=== PATIENT | male | born 1975 | race Caucasian/White ===

== ENCOUNTER 2023-11-01 09:35 | Day surgery (SDC) | payer OTHER, SELFPAY ==
--- NOTE | 2023-10-30 08:58 | SUR.PREOP ---
Patient called regarding upcoming procedure. Reviewed preop instructions, appointment times, and procedure prep.
[2023-11-01] VITALS (7 sets, daily range): BP systolic 94–112; BP diastolic 51–64; PULSE 48–85; RESP 16–26; TEMP 36.6; O2SAT 97–99; BMI 19.3
[2023-11-01] MEDS: LACTATED RINGERS 1,000 ML 150 ML IV CONT (10:08)
--- NOTE | 2023-11-01 10:35 | WPDANESEPPF ---
Anes - Initial Pre Proc Eval Procedure: Operation Date: 11/01/23 11:00 Proposed Procedures p Screening Colonoscopy - Kei Sanchez MD Date/Time: 11/01/23 10:35 Surgeon: Kei Sanchez MD Pre Op Diagnosis: neoplasm screening Patient Data Age: 48 Gender: M Height: 1.78 m Weight: 61.3 kg Last Vital Signs Temp 97.8 F 11/01/23 09:48 Pulse 85 11/01/23 09:48 Resp 16 11/01/23 09:48 BP 112/64 11/01/23 09:48 Pulse Ox 99 11/01/23 09:48 O2 Del Method Room Air 11/01/23 09:48 Allergies Allergy/AdvReac Type Severity Reaction Status Date / Time Tropicamide Allergy Severe Other Uncoded 11/01/23 09:57 Home Medications Medication Instructions Recorded Confirmed Type diroximel fumarate 231 mg 231 mg PO BID 08/27/23 11/01/23 History capsule,delayed release (Vumerity) Patient hx anesthesia problems: none Family hx anesthesia problems: none Results Review: All pre-operative results and documents have been reviewed as part of the pre-operative evaluation. [facility] Past Medical History Medical History Celiac disease Multiple sclerosis Surgical History Surgical History H/O inguinal hernia repair Family History Family History Mother Family history of lupus erythematosus Celiac disease Sjogren's disease Social History Social History (Updated 08/27/23 @ 13:13 by Josette Vogel CMA) Smoking packs per day: 1 Smoking cigarettes per day: 20.0 Years smoked: 16 Smoking pack-years: 16.00 Smoking status: Former smoker Tobacco type: cigarettes Second hand tobacco smoke exposure: No Smoking end date: 08/19/02 Alcohol intake: current Drinks per week: 3 Alcohol use details: occasional Substance use: current Substance use type: marijuana Other substance usage details: to help with symptoms of MS Do You Feel Safe in your Home?: Yes Lack of Transportation: No Lack of Food: Never True Current Housing: I Have Housing Concerned About Future Housing: No Difficulty Paying Gas/Electric Bills: No Difficulty Paying for Meds: Decline to Answer Currently Unemployed: No Education: Bachelor's Degree Difficulty w/ Childcare or Family Care: No Living arrangements: with family Occupation/Education: occupation Gender identity (if verbalized by the patient): Male Spiritual care concerns: No Agree to blood products: Yes Anes - Eval Final PreProcedure Day of Procedure 11/01/23 10:35 Patient weight: normal Heart: regular rate and rhythm Lungs: clear to auscultation Airway: Mallampati scale class II Neurological: alert and oriented Last oral intake: >/= 8 hours ASA classification: II Emergent: no Anesthetic plan: proceed Anesthesia type and monitoring: general GIVS and standard monitoring Results Review: All pre-operative results and documents have been reviewed as part of the pre-operative evaluation. Informed Consent: The patient's anesthetic plan and its attendant risks and benefits were discussed with the patient/family/POA. Questions were solicited and answers provided to the satisfaction of the patient/family/POA.
--- NOTE | 2023-11-01 11:07 | PM.HPGS ---
History of Present Illness History of Present Illness Consent: Risks, benefits, and alternatives have been discussed and questions answered. Patient agrees to proceed with procedure. Chief complaint: neoplasm screening Narrative: Kishan Negrete is a 48 year old male here for first screening colonoscopy Review of Systems Review of Systems: All systems reviewed & are unremarkable except as noted in HPI and below PMFSH Past Medical History Medical History Celiac disease Multiple sclerosis Surgical History Surgical History H/O inguinal hernia repair Family History Family History Mother Family history of lupus erythematosus Celiac disease Sjogren's disease Social History Social History (Updated 08/27/23 @ 13:13 by Josette Vogel [facility]) Smoking packs per day: 1 Smoking cigarettes per day: 20.0 Years smoked: 16 Smoking pack-years: 16.00 Smoking status: Former smoker Tobacco type: cigarettes Second hand tobacco smoke exposure: No Smoking end date: 08/19/02 Alcohol intake: current Drinks per week: 3 Alcohol use details: occasional Substance use: current Substance use type: marijuana Other substance usage details: to help with symptoms of MS Do You Feel Safe in your Home?: Yes Lack of Transportation: No Lack of Food: Never True Current Housing: I Have Housing Concerned About Future Housing: No Difficulty Paying Gas/Electric Bills: No Difficulty Paying for Meds: Decline to Answer Currently Unemployed: No Education: Bachelor's Degree Difficulty w/ Childcare or Family Care: No Living arrangements: with family Occupation/Education: occupation Gender identity (if verbalized by the patient): Male Spiritual care concerns: No Agree to blood products: Yes Meds Home Medications and Allergies Home Medications Medication Instructions Recorded Confirmed Type diroximel fumarate 231 mg 231 mg PO BID 08/27/23 11/01/23 History capsule,delayed release (Vumerity) Allergies Allergy/AdvReac Type Severity Reaction Status Date / Time Tropicamide Allergy Severe Other Uncoded 11/01/23 09:57 Vital Signs Vital Signs - 24 hr 11/01/23 09:48 Temperature 97.8 F Pulse Rate 85 Respiratory Rate 16 Blood Pressure 112/64 Pulse Oximetry 99 Oxygen Delivery Room Air Exam Const: General: comfortable and no acute distress HENMT: Face/Nose/Sinus: Normal nares present Eyes: General: appearance normal, both eyes and all related structures Neck: Neck: no JVD Resp: Auscultation: clear to auscultation bilaterally Cardio: Rate: regular rate Rhythm: regular rhythm GI: Inspection: non-distended GI Palp: Yes Soft to palpation Skin: General skin exam: normal color Neuro: General: gait normal Speech: normal speech Extrem: General: normal to inspection Psych: Mental Status: mental status grossly normal Assessment and Plan Assessment and plan (1) Screening for colon cancer: Code(s): Z12.11 - Encounter for screening for malignant neoplasm of colon Status: Acute Assessment and Plan: colonoscopy
== END 2023-11-01 12:41 | disposition home or self-care (01) ==
PROVIDERS: PCP Clinical Nurse Specialist; Visit Provider Internal Medicine Gastroenterology
PROC: 0DJD8ZZ Inspection of Lower Intestinal Tract, Via Natural or Artificial Opening Endoscopic (ICD-10-PCS; CPT 45378; principal; 2023-11-01 11:00)
DX: Z12.11 Encounter for screening for malignant neoplasm of colon (principal); G35 Multiple sclerosis; K90.0 Celiac disease; Z87.891 Personal history of nicotine dependence; F12.90 Cannabis use, unspecified, uncomplicated
CPT/HCPCS: 45378; J2704; J7120

== ENCOUNTER 2025-05-03 18:47 | Emergency (ER) | payer OTHER, SELFPAY ==
[2025-05-03 18:54] VITALS: BP 130/66; PULSE 76; RESP 16; TEMP 37.1; O2SAT 98
--- NOTE | 2025-05-03 19:12 | ED_ITS ---
HPI - Skin/Abscess/Foreign Bdy General Chief complaint: Skin/Abscess/Foreign Body Stated complaint: possible shingles Time Seen by Provider: 05/03/25 19:12 Source: patient Mode of arrival: ambulatory Limitations: no limitations History of Present Illness HPI narrative: 49-year-old male with hx MS presented for complaint of a painful red rash, onset today. Says it wraps from the ribs to the back. endorses back pain from the left shoulder blade and across mid back for 4 days. Endorses 'nerves are burning.' Taking motrin. Denies n/v/d/f/c. Related Data Allergies Allergy/AdvReac Type Severity Reaction Status Date / Time Tropicamide Allergy Severe Other Uncoded 12/26/23 10:52 Review of Systems Review of Systems: CONSTITUTIONAL: Denies body aches, fever, chills, or sweats. EYES: Denies visual changes, redness, or discharge. ENT: Denies rhinorrhea, congestion CARDIOVASCULAR: Denies chest pain, palpitations, or edema. RESPIRATORY: Denies cough or dyspnea. GASTROINTESTINAL: Denies abdominal pain, nausea, vomiting, or diarrhea. SKIN: reports painful rash NEUROLOGIC: Denies headache, numbness, tingling, or weakness. [facility] Past Medical History Medical History Celiac disease Multiple sclerosis Surgical History Surgical History H/O inguinal hernia repair Family History Family History Mother Family history of lupus erythematosus Celiac disease Sjogren's disease Social History Social History Smoking packs per day: 1 Smoking cigarettes per day: 20.0 Years smoked: 15 Smoking pack-years: 15.00 Smoking status: Former smoker Tobacco type: cigarettes Second hand tobacco smoke exposure: No Smoking end date: 08/19/02 Alcohol intake: current Drinks per week: 3 Alcohol use details: occasional Substance use: former Substance use type: marijuana Other substance usage details: to help with symptoms of MS Do You Feel Safe in your Home?: Yes Lack of Transportation: No Lack of Food: Never True Current Housing: I Have Housing Concerned About Future Housing: No Difficulty Paying Gas/Electric Bills: No Difficulty Paying for Meds: Decline to Answer Currently Unemployed: No Education: Bachelor's Degree Difficulty w/ Childcare or Family Care: No Living arrangements: alone Occupation/Education: occupation Gender identity (if verbalized by the patient): Male Spiritual care concerns: No Agree to blood products: Yes Comments At time of signature, I have reviewed and agree with nursing past medical, surgical, social and family history unless otherwise noted. Please see nursing chart for further information. There is no relevant family history pertinent to the presenting complaint Exam Narrative: GENERAL: Well-appearing EYES: conjunctivae clear, and EOMI. ENT: Mucous membranes moist. Oropharynx without edema, erythema or lesions. NECK: Supple. No lymphadenopathy CHEST: Clear to auscultation. HEART: Regular rate and rhythm. SKIN: Warm, dry. Erythematous vesicular rash extending from left lower ribs to left mid back consistent with dermatome, rash is tender with light palpation c/w zoster. No active drainage. NEURO: Alert and oriented x3. Course Course Emergency Course: Patient is aware of diagnosis, understands and agrees to treatment plan. Anticipatory guidance given. Patient agrees to follow-up as directed and is aware of reasons to seek care at the emergency department. Portions of this record may have been created with voice recognition software Level of Care: Express Care Visit Vital Signs Vital signs: Vital Signs Temperature 98.8 F 05/03/25 18:54 Pulse Rate 76 05/03/25 18:54 Respiratory Rate 16 05/03/25 18:54 Blood Pressure 130/66 05/03/25 18:54 Pulse Oximetry 98 05/03/25 18:54 Oxygen Delivery Room Air 05/03/25 18:54 Temperature 98.8 F 05/03/25 18:54 Pulse Rate 76 05/03/25 18:54 Respiratory Rate 16 05/03/25 18:54 Blood Pressure 130/66 05/03/25 18:54 Pulse Oximetry 98 05/03/25 18:54 Oxygen Delivery Room Air 05/03/25 18:54 Reviewed MDM - Skin/Abscess/Foreign Bdy MDM Narrative Medical decision making narrative: Discussed physical exam findings Consistent with zoster, reviewed RX. Advised supportive measures and signs/symptoms to go to the ER. Pt is approp riate for outpt treatment and f/u. Differential Diagnosis Differential diagnosis: Likely abscess of skin or subcutaneous tissue, viral exanthem, dermatophytosis, urticaria, herpes zoster, cellulitis, eczema, insect bites, impetigo and contact dermatitis Discharge Plan Discharge Clinical Impression: Herpes zoster Patient Disposition: Home Condition: Stable Instructions: Shingles (ED) Additional Instructions: Take medication as directed Keep the lesions covered until they are fully crusted over - you are contagious until they are dried Avoid contact with women or people who have not had chickenpox vaccination. Tylenol 1000mg every 8 hours as needed Lidocaine patch as needed (not over the blisters) Follow up with your primary care provider next week. Go to the ER for worsening symptoms or concerns. Patient Language: Albanian Prescriptions: New valacyclovir 1 gram tablet 1,000 mg PO Q8H 7 Days Qty: 21 0RF methylprednisolone [Medrol (Ponce)] 4 mg tablets,dose pack See Rx Instructions .ROUTE .COMPLEX Qty: 21 0RF Rx Instructions: orally per package directions Follow-up/Referrals: Renata,Cheyenne Vargas MD [Primary Care Provider, Family Practice] Stand Alone Forms: Work/School Release IP Time of Disposition: 19:20
--- OUTSIDE RECORDS SUMMARY | 2025-05-03 19:23 | XMS_ITS | Clinical Summary ---
Author Organization [facility] Medical [facility] 2 Address [address] [facility] [place] [address] Care Team Providers Care Promotions Associate Name Role Phone Radha Villela NP Primary Care Provider [phone] Allergies Active Allergy Reactions Criticality Noted Date Comments Tropicamide Nausea & Vomiting Low 04/04/2018 Medications No known medications Active Problems Problem Noted Date Diagnosed Date Cervical spinal stenosis 03/19/2024 Assessment & Plan (03/19/2024 5:35 PM CDT): Moderate to severe cervical stenosis at C5-6 without cord compression, but loss of CSF signal around the cord. Patient wants to defer on neurosurgical follow-up. Risk of serious spinal cord injury if he has an accident discussed. Patient does trail biking. Erectile dysfunction due to diseases classified elsewhere 03/19/2024 Assessment & Plan (03/19/2024 5:37 PM CDT): Option of Cialis and Viagra discussed. Migraine with aura and witho ut status migrainosus, not intractable 09/07/2021 Assessment & Plan (03/19/2024 5:36 PM CDT): Kaliedoscope lights sometimes followed by headache consistent. History of severe migraines in children. Assessment & Plan (03/06/2023 6:48 PM CDT): Kaliedoscope lights sometimes followed by headache consistent. History of severe migraines in children. Assessment & Plan (09/06/2022 5:46 PM MANAGER FINANCIAL SERVICES): Kaliedoscope lights sometimes followed by headache consistent. History of severe migraines in children. Assessment & Plan (03/01/2022 12:28 PM CDT): Kaliedoscope lights sometimes followed by headache consistent. History of severe migraines in children. Assessment & Plan (09/07/2021 8:09 PM MANAGER FINANCIAL SERVICES): Kaliedoscope lights sometimes followed by headache consistent. History of severe migraines in children. Hyperbilirubinemia 05/03/2018 Assessment & Plan (03/19/2024 5:36 PM CDT): 09/19/23 total bilirubin 2.1 Possible Gilbert's syndrome (mother affected) Right upper quadrant ultrasound normal February 2019 Assessment & Plan (03/06/2023 6:48 PM CDT): Possible Gilbert's syndrome (mother affected) Right upper quadrant ultrasound normal February 2019 Assessment & Plan (09/06/2022 5:47 PM MANAGER FINANCIAL SERVICES): Possible Gilbert's syndrome (mother affected) Right upper quadrant ultrasound normal February 2019 Assessment & Plan (03/01/2022 12:29 PM CDT): Possible Gilbert's syndrome (mother affected) Right upper quadrant ultrasound normal February 2019 Assessment & Plan (09/07/2021 8:07 PM MANAGER FINANCIAL SERVICES): Possible Gilbert's syndrome (mother affected) Right upper quadrant ultrasound normal February 2019 Assessment & Plan (03/10/2021 8:09 AM CDT): Possible Gilbert's syndrome (mother affected) Right upper quadrant ultrasound normal February 2019 Assessment & Plan (09/12/2020 5:12 PM MANAGER FINANCIAL SERVICES): Possible Gilbert's syndrome (mother affected) Right upper quadrant ultrasound normal February 2019 Assessment & Plan (03/08/2020 7:34 AM CDT): Possible Gilbert's syndrome (mother affected) Right upper quadrant ultrasound normal February 2019 Assessment & Plan (09/11/2019 9:35 AM MANAGER FINANCIAL SERVICES): Possible Gilbert's syndrome (mother affected) Right upper quadrant ultrasound normal February 2019 Assessment & Plan (03/05/2019 9:28 AM CDT): Possible Gilbert's syndrome (mother affected) Will assess for gallbladder disease Thyroid nodule 05/03/2018 Assessment & Plan (03/01/2022 12:29 PM CDT): Left thyroid nodule 8 mm incidental finding on MRI scan of the cervical spine from February 2019. Addressed with PCP Assessment & Plan (09/07/2021 8:07 PM MANAGER FINANCIAL SERVICES): Left thyroid nodule 8 mm incidental finding on MRI scan of the cervical spine from February 2019. Addressed with PCP Assessment & Plan (03/10/2021 8:09 AM CDT): Left thyroid nodule 8 mm incidental finding on MRI scan of the cervical spine from February 2019. Addressed with PCP Assessment & Plan (09/12/2020 5:13 PM MANAGER FINANCIAL SERVICES): Left thyroid nodule 8 mm incidental finding on MRI scan of the cervical spine from February 2019. Addressed with PCP Assessment & Plan (03/08/2020 7:36 AM CDT): Left thyroid nodule 8 mm incidental finding on MRI scan of the cervical spine from February 2019. Addressed with PCP Assessment & Plan (10/14/2018 9:21 AM MANAGER FINANCIAL SERVICES): Biopsy completed and benign per patient Assessment & Plan (06/20/2018 1:30 PM CDT): Records and imaging sent to Dr. Huddleston Patient will follow up Multiple sclerosis 11/28/2017 Assessment & Plan (03/19/2024 5:34 PM CDT): CSF 10/12/17: 10 unique bands in the cerebrospinal fluid (13 bands CSF, 3 bands serum). 03/13/18 NMO antibody negative, MOG negative. 03/01/22 Octave disease activity score 4.5. NfL 21st percentile. GFAP 43rd percentile. Vumerity discontinued September 2023 due to periorbital rash and ongoing diarrhea. Alternative treatment options discussed including teriflunomide (Aubagio), Mavenclad and Zeposia. Risks and benefits of teriflunomide discussed including low white count/potential serious infection, hypertension, hepatotoxicity, alopecia and diarrhea. The benefits and risks of Zeposia were discussed including bradycardia, heart block, hypertension, macular edema, serious infections (including PML/cryptococcal meningitis), pulmonary/hepatic toxicity and skin cancer. The benefits and risks of Mavenclad were discussed including leukopenia, serious infections including PML, harm, liver injury and potential malignancy. He will review information on these medications let me know how he would like to proceed. He understands that off disease-modifying therapy, he may develop a new relapse, new MRI activity and/or worsening disability. Increased risk of serious complications including pneumonia and possibly if develops COVID-19 infection discussed. His last COVID-19 vaccine was fall 2022. He understands that COVID-19 vaccination may be less efficacious on fumarate therapy and he potentially may not be protected. Wendielovinikky advised if he develops COVID-19. Vitamin D3 4000 IU daily Continue trail [place] Assessment & Plan (03/06/2023 6:47 PM CDT): CSF 10/12/17: 10 unique bands in the cerebrospinal fluid (13 bands CSF, 3 bands serum). 03/13/18 NMO antibody negative, MOG negative. 03/01/22 Octave disease activity score 4.5. NfL 21st percentile. GFAP 43rd percentile. Vumerity 462 mg twice a day. Risks discussed including hepatotoxicity, lymphocytopenia and serious infections including PML. Importance of lymphocyte monitoring discussed. Due to poorly tolerated flushing on dimethyl fumarate that use to awakened him at night. Increased risk of serious complications including pneumonia and possibly if develops COVID-19 infection discussed. He received J&J COVID-19 vaccine on October 21, 2020 followed by Moderna booster on August 27, 2021. Another booster vaccination recommended. He understands that COVID-19 vaccination may be less efficacious on fumarate therapy and he potentially may not be protected. Paxlovid advised if he develops COVID-19. Vitamin D3 2000 IU daily Continue trail biking MRI brain and cervical spine without contrast March 2024 Assessment & Plan (09/06/2022 5:46 PM MANAGER FINANCIAL SERVICES): CSF 10/12/17: 10 unique bands in the cerebrospinal fluid (13 bands CSF, 3 bands serum). 03/13/18 NMO antibody negative, MOG negative. On Dimethyl fumarate 240 mg twice a day. Risks discussed including PML. Due to poorly tolerated flushing that awakens him at night, switch to Vumerity advised. If ongoing flushing of Vumerity, Zeposia discussed as alternative option. The benefits and risks of Zeposia were discussed including bradycardia, heart block, hypertension, macular edema, serious infections (including PML/cryptococcal meningitis), pulmonary/hepatic toxicity, basal carcinoma and even . Importance of lymphocyte monitoring discussed. Increased risk of serious complications including pneumonia and possibly if develops COVID-19 infection discussed. He received J&J COVID-19 vaccine on October 21, 2020 followed by Moderna booster on August 27, 2021. Another booster vaccination recommended. He understands that COVID-19 vaccination may be less efficacious on fumarate therapy and he potentially may not be protected. Paxlovid advised if he develops COVID-19. Vitamin D3 2000 IU daily Continue trail biking. Assessment & Plan (03/01/2022 12:28 PM CDT): CSF 10/12/17: 10 unique bands in the cerebrospinal fluid (13 bands CSF, 3 bands serum). 03/13/18 NMO antibody negative, MOG negative. Dimethyl fumarate 240 mg twice a day. Risks discussed including PML. Importance of lymphocyte monitoring discussed. Increased risk of serious complications including pneumonia and possibly if develops COVID-19 infection discussed. He received J&J COVID-19 vaccine on October 21, 2020 followed by Moderna booster on August 27, 2021. Another booster vaccination recommended. He understands that COVID-19 vaccination may be less efficacious on dimethyl fumarate and he potentially may not be protected. Wendielovid advised if he develops COVID-19. Vitamin D3 2000 IU daily Continue trail biking. Assessment & Plan (09/07/2021 8:07 PM MANAGER FINANCIAL SERVICES): CSF 18: 10 unique bands in the cerebrospinal fluid (13 bands CSF, 3 bands serum). 03/13/18 NMO antibody negative, MOG negative. Dimethyl fumarate 240 mg twice a day. Risks discussed including PML. Importance of lymphocyte monitoring discussed. Increased risk of serious complications if develops coronavirus infection (COVID-19) discussed including pneumonia and possible reviewed. He has been strictly maintaining social distancing. He received J&J COVID-19 vaccine on October 21, 2020 followed by Moderna booster on August 27, 2020. He understands that COVID-19 vaccination may be less efficacious on dimethyl fumarate and he potentially may not be protected. I advised him to wear a mask in public and around unvaccinated people, especially with rising delta variant. Vitamin D3 4000 IU daily Continue trail biking Travel precautions with COVID-19 discussed. MRI brain and cervical spine without contrast February 2022. Assessment & Plan (03/13/2021 12:43 PM CDT): CSF 10/12/17: 10 unique bands in the cerebrospinal fluid (13 bands CSF, 3 bands serum). 03/13/18 NMO antibody negative, MOG negative. Dimethyl fumarate 240 mg twice a day. Risks discussed including PML. Flushing management discussed. Importance of lymphocyte monitoring discussed. Increased risk of serious complications if develops coronavirus infection (COVID-19) discussed including pneumonia and possible reviewed. He has been strictly maintaining social distancing. He received change a COVID-19 vaccination October 28, 2020. He understands that COVID-19 vaccination may be less efficacious on dimethyl fumarate and he potentially may not be protected. I advised him to wear a mask in public and around unvaccinated people, especially with rising delta variant. Vitamin D3 4000 IU daily Continue trail biking Travel precautions with COVID-19 discussed. MRI brain and cervical spine February 2022. Assessment & Plan (09/12/2020 5:12 PM MANAGER FINANCIAL SERVICES): CSF 18: 10 unique bands in the cerebrospinal fluid (13 bands CSF, 3 bands serum). 03/13/18 NMO antibody negative, MOG negative. Dimethyl fumarate 240 mg twice a day. Risks discussed including PML. Importance of lymphocyte monitoring discussed. Increased risk of serious complications if develops coronavirus infection (COVID-19) discussed including pneumonia and possible reviewed. Patient wants to continue dimethyl fumarate. He has been strictly maintaining social distancing. COVID 19 vaccination recommended when available to him. He understands that COVID-19 vaccination may be less efficacious on dimethyl fumarate and he potentially may not be protected. Vitamin D3 4000 IU daily Continue [place] MRI brain and cervical spine February 2022. Assessment & Plan (03/08/2020 7:34 AM CDT): CSF 10/12/17: 10 unique bands in the cerebrospinal fluid (13 bands CSF, 3 bands serum). 03/13/18 NMO antibody negative, MOG negative. Tecfidera 240 mg twice a day. Risks discussed including PML. Importance of lymphocyte monitoring discussed. Increased risk of serious complications if develops coronavirus infection (COVID-19) discussed including pneumonia and possible reviewed. Patient wants to continue Tecfidera. He has been strictly maintaining social distancing. Travel to [place] discussed. Vitamin D3 4000 IU daily Continue [place] Assessment & Plan (09/11/2019 9:34 AM MANAGER FINANCIAL SERVICES): CSF 10/12/17: 10 unique bands in the cerebrospinal fluid (13 bands CSF, 3 bands serum). 03/13/18 NMO antibody negative, MOG negative. Tecfidera 240 mg twice a day. Risks discussed including PML. Importance of lymphocyte monitoring discussed. Flushing management discussed Will repeat MRI scan of the brain with contrast in February 2020 since his last scan demonstrated interval development of a new 8 mm T2-hyperintense lesion. However, his prior MRI scan was 8 months before starting his 1st DMT, Tecfidera. Vitamin D3 4000 IU daily Continue [place] Assessment & Plan (03/05/2019 9:28 AM CDT): CSF 10/12/17: 10 unique bands in the cerebrospinal fluid (13 bands CSF, 3 bands serum). 03/13/18 NMO antibody negative, MOG negative. Tecfidera 240 mg twice a day. Risks discussed including PML. Importance of lymphocyte monitoring discussed. Vitamin D3 2000 IU daily Continue trail biking Assessment & Plan (10/14/2018 9:21 AM MANAGER FINANCIAL SERVICES): Continue Tecfidera twice daily. Reviewed risks including PML and hepatotoxicity. Can take ASA before dose for flushing. Make sure to eat protein and fats with your meal prior to Tecfidera Blood work today Continue exercise and healthy eating Follow up appt with Dr. Mojica in the summer as well as MRI of the brain summer 2018 Assessment & Plan (06/20/2018 1:30 PM CDT): Tecfidera. Discussed and reviewed risks including hepatotoxicity and PML. We reviewed flushing and GI side effects and the importance of eating well to prevent and lessen those side effects Blood work now and again in 2 months. Flu shot now We had a lengthy discussion regarding health in [place] including DMT purpose, symptom management, exercise, cognitive health and vitamin D He has a follow up already scheduled with Dr. Mojica in Sep 2018 Osteoarthritis of cervical spine 11/13/2017 Resolved Problems Problem Noted Date Diagnosed Date Resolved Date White matter abnormality on MRI of brain 04/07/2018 05/03/2018 High risk medication use 03/10/2018 High risk medications (not a nticoagulants) long-term use 03/10/2018 03/05/2019 CSF abnormal 11/28/2017 03/05/2019 Optic neuritis, right 10/18/20172017 Immunizations Immunization Administration Dates Next Due Influenza, Quadrivalent, Spl it, Preservative Free, Intramuscular 06/20/2018 Influenza, Unspecified 07/03/2022 Medical History Medical History Date Comments Benign neoplasm of bone and articular cartilage, unspecified Osteochondroma - (Added by T W Conv) Personal history of other sp ecified conditions History of headache - (Added by TW Conv) Family History Medical History Relation Name Comments Celiac disease Mother Adult celiac disease - (Added by TW Conv) Sjogren's syndrome Mother Family hi story of Sjogren's disease - (Added by TW Conv) Relation Name Status Comments Mother Social History Tobacco Use Types Packs/Day Years Used Date Smoking Tobacco: Former Smokeless Tobacco: Never Tobacco Cessation:Counseling Given: Not Answered Personal Safety Answer Date Recorded Getting School Help Needed Not on file 09/09 Sex and Gender Information Value Date Recorded Sex Assigned at Not on file Legal Sex Male 6:43 PM MANAGER FINANCIAL SERVICES Gender Identity Not on file Sexual Orientation Not on file Obstetrics History Last Filed Vital Signs Vital Sign Reading Time Taken Comments Blood Pressure 118/70 03/19/2024 10:26 AM CDT Pulse 58 03/19/2024 10:26 AM CDT Temperature 36.7 C (98.1 F) 03/19/2024 10:26 AM CDT Respiratory Rate 16 03/07/2020 9:35 AM CDT Oxygen Saturation 97% 03/19/2024 10:26 AM CDT Inhaled Oxygen Concentration - - Weight 65.3 kg (144 lb) 03/19/2024 10:26 AM CDT Height 177.8 cm (5' 10) 03/19/2024 10:26 AM CDT Body Mass Index 20.66 03/19/2024 10:26 AM CDT Plan of Treatment Health Maintenance Due Date Last Done Comments Colon Cancer Screening-Colonoscopy 1977 Depression Screening 1977 DTaP/Tdap/Td Vaccine (1 - Tdap) 1988 Hepatitis B Screening 1995 Regular Well Visit/Exam 18-64 1995 Covid-19 Vaccine (3 - 2024-2 6 season) 2025 08/27/2021, 10/21/2020 Influenza Vaccine (#1) 2025 2, 06/20/2018 Hepatitis C Screening Completed 03/19/2024 Pneumococcal vaccine <65 Aged Out No longer eligible based on patient's age to complete this topic Procedures Procedure Name Priority Date/Time Associated Diagnosis Comments HEPATITIS PANEL, ACUTE Routine 03/19/2024 11:23 AM CDT Multiple sclerosis (HCC) from Last 3 Months or Most Recently Relevant to Health Maintenance Results * Hepatitis panel, acute Blood (03/19/2024 11:23 AM CDT) Hep A IgM Nonreactive Nonreactive Comment: Interpretive Data: If Hep A IgM Ab is reported as Equivocal, a new sample should be drawn in two weeks for testing. Current interpretive data was last revised on 19. Hep B core IgM Nonreactive Nonreactive [facility] Comment: Interpretive Data If HepB Core IgM Ab is reported as Equivocal, a new sample should be drawn in two weeks for testing. Current interpretive data was last revised on 19. Hep C Ab Nonreactive Nonreactive [facility] Comment: Interpretive Data Nonreactive: Antibodies to HCV not detected. Does NOT exclude the possibility of recent exposure to HCV. Equivocal: Equivocal for HCV antibodies. Supplemental molecular testing will be automatically performed to determine infection status in accordance with current CDC screening recommendations. Reactive: Positive for HCV antibodies. This may represent current or past HCV infection. Supplemental molecular testing will be automatically performed to determine current infection status in accordance with current CDC screening recommendations. Interpretive data was last revised on 2019. HepBsAg Nonreactive Nonreactive [facility] Blood 03/19/2024 11:2 3 AM CDT 03/19/2024 1:57 PM CDT Juan Carlos Mojica MD LAB MICROBIOLOGY - GENERAL OR DERABLES Final Result [facility] [address] [place] [address] from Last 3 Months or Most Recently Relevant to Health Maintenance Insurance [employer] [facility] [id number] [facility] [id number] [employer] [facility] [id number] Care Teams Promotions Associate Relationship Specialty Start Date End Date Radha Villela NP [facility] [address] [address] PCP - General Cardiovascular Disease 09/20/23
--- OUTSIDE RECORDS SUMMARY | 2025-05-03 19:23 | XMS_ITS | Encounter Summary ---
Author Organization [facility] Healthcare Address [address] [place] [address] Care Team Providers Care Fibre Technologist Name Role Phone Johnathon Huddleston MD Primary Care Provider Radha Villela NP Primary Care Provider [phone] Encounter Details Date Type Department Care Team (Late st Contact Info) Description 02/17/2020 Telephone [facility] [address] [place] [address] Lenka Larson [place] Social History Tobacco Use Types Packs/Day Years Used Date Smoking Tobacco: Former Smokeless Tobacco: Never Sex and Gender Information Value Date Recorded Sex Assigned at Not on file Legal Sex Male 6:43 PM JAVASCRIPT ENGINEER Gender Identity Not on file Sexual Orientation Not on file documented as of this encounter Plan of Treatment Not on file documented as of this encounter Visit Diagnoses Not on filedocumented in this encounter Care Teams Fibre Technologist Relationship Specialty Start Date End Date Johnathon Huddleston MD [address] [facility] [address] [place] [address] PCP - General 11/28/17 09/19/23 Radha Villela NP [address] [facility] [address] [place], [place] [address] PCP - General Cardiovascular Disease 09/20/23 documented as of this encounter
--- OUTSIDE RECORDS SUMMARY | 2025-05-03 19:23 | XMS_ITS | Clinical Summary ---
Author Organization [facility] Address [address] [place] [address] Care Team Providers Care Youth Counselor Name Role Phone Unavailable Primary Care Provider Unavailabl e Social History Tobacco Use Types Packs/Day Years Used Date Smoking Tobacco: Never Assessed Sex and Gender Information Value Date Recorded Sex Assigned at Not on file Legal Sex Male 2:49 PM CDT Gender Identity Not on file Sexual Orientation Not on file Plan of Treatment Health Maintenance Due Date Last Done Comments Colorectal Cancer Screening Colonoscopy (10 Years) 1977 Annual Physical 1980 Hepatitis C 1995 DTaP, Tdap and Td Vaccines ( 1 - Tdap) 1996 Hepatitis B Vaccines (1 of 3 - 19+ 3-dose series) 1996 COVID-19 Vaccine ( - 2023-2 5 season) 2025 Meningococcal B Vaccine Aged Out No l onger eligible based on patient's age to complete this topic Meningococcal Vaccine Aged Out No aravind sera eligible based on patient's age to complete this topic Pneumococcal Vaccine: Pediat rics (0 to 5 Years) and At-Risk Patients (6 to 49 Years) Aged Out No longer eligible b ased on patient's age to complete this topic RSV Immunizations Under 20 Months Aged Out No longer eligible based on patient's age to complete this topic
--- OUTSIDE RECORDS SUMMARY | 2025-05-03 19:23 | XMS_ITS | Clinical Summary ---
Author Organization [facility] Address [address] [place] [address] Care Team Providers Care Course Developer Name Role Phone Cheyenne Yanez MD Primary Care Provider [phone] Source Comments [facility],non-owned Affiliates and Associated Physician Practices is amultiple site organization consisting of ambulatory clinics and hospital sitesin [place], [place], [place] and [place]. This disclosure is being madepursuant to the Care Everywhere program and may not contain all information available regarding this patient. Last updated 18.[facility] Allergies Active Allergy Reactions Criticality Noted Date Comments Tropicamide Nausea and/or Vomiting Low 04/04/2018 Medications * Be aware that medications may not be up to date on this document. Alwaysverify current medications with the patient. No known medications Active Problems Problem Noted Date Diagnosed Date Cervical spinal stenosis 03/19/2024 Erectile dysfunction due to diseases classified elsewhere 03/19/2024 Migraine with aura and witho ut status migrainosus, not intractable 09/07/2021 Thyroid nodule 05/03/2018 Hyperbilirubinemia 05/03/2018 Multiple sclerosis 11/28/2017 Osteoarthritis of cervical spine 11/13/2017 Immunizations Immunization Administration Dates Next Due COVID RANJAN PRIMARY 18+YR 10/21/2020 COVID MODERNA 12+ yr 50mcg/0.5mL 07/30/2023 Covid Moderna primary monovalent 12+ yr 0.5mL INFLUENZA VACCINE 06/11/2024,07/03/2022 INFLUENZA VACCINE, QUADR. (F LUZONE; FLULAVAL; FLUARIX; AFLURIA QUADRIVALENT; 6MO+), 0.5 ML (IIV4) 06/20/2018 Family History Medical History Relation Name Comments Diabetes - Type 2 Father Hypertension Maternal Grandfather Hypertension Maternal Grandmother Celiac Disease Mother Lupus Mother Relation Name Status Comments Father Alive Maternal Grandfather Maternal Grandmother Mother Alive Social History Tobacco Use Types Packs/Day Years Used Date Smoking Tobacco: Former Cigarettes Smokeless Tobacco: Never Tobacco Cessation:Counseling Given: Not Answered Alcohol Use Standard Drinks/Week Comments Yes 0 (1 standard drink = 0.6 oz pur e alcohol) PHQ-2 Answer Date Recorded Patient Health Questionnaire-2 Score 0 06/03/2024 Sex and Gender Information Value Date Recorded Sex Assigned at Not on file 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 Gender Identity Not on file Sexual Orientation Straight 06/09/2024 10 :50 AM CDT Last Filed Vital Signs Vital Sign Reading Time Taken Comments Blood Pressure 102/62 06/03/2024 2:01 PM CDT Pulse 70 06/03/2024 2:01 PM CDT Temperature 36.7 C (98 F) 06/03/2024 2:01 PM CDT Respiratory Rate - - Oxygen Saturation 98% 06/03/2024 2:01 PM CDT Inhaled Oxygen Concentration - - Weight 67.6 kg (149 lb) 06/03/2024 2:01 PM CDT Height 177.8 cm (5' 10) 06/03/2024 2:01 PM CDT Body Mass Index 21.38 06/03/2024 2:01 PM CDT Plan of Treatment Health Maintenance Due Date Last Done Comments COLOGUARD (AGES 45-75) - COL ON CA SCREENING [address] COLONOGRAPHY - COLON CA SCREENING 1977 FIT - COLON CA SCREENING 1977 FLEX SIG - COLON CA SCREENING 1977 HIV SCREENING 1992 HEPATITIS C SCREENING 08/15/1995 DTAP/TDAP/TD VACCINES (1 - Tdap) 1996 HEPATITIS B VACCINE (1 of 3 - 19+ 3-dose series) 1996 DEPRESSION SCREENING 2024 06/03/2024 COVID-19 VACCINE (4 2024-2 6 season) 2025 07/30/2023, 08/27/2021, 10/21/2020 INFLUENZA VACCINE (#1) 2025 , 07/03/2022, 06/20/2018 ZOSTER VACCINE (1 of 2) 2027 LIPID TESTING 06/05/2029 06/05/2024 COLONOSCOPY - COLON CA SCREENING 09/24/2033 Colorectal Cancer Screening 09/24/2033 HIB VACCINE Aged Out No longer eligi ble based on patient's age to complete this topic HPV VACCINE Aged Out No longer eligi ble based on patient's age to complete this topic MENINGOCOCCAL (Group B) VACCINE SHARED DECISION-MAKING Aged Out No longer eligible based on patient's age to complete this topic MENINGOCOCCAL GROUPS A/C/Y/W VACCINE Aged Out No longer eligible b ased on patient's age to complete this topic PNEUMOCOCCAL VACCINE Aged Out No long er eligible based on patient's age to complete this topic Procedures Procedure Name Priority Date/Time Associated Diagnosis Comments LIPID PROFILE Routine 06/05/2024 11:25 AM CDT Screening for lipid disorders from Last 3 Months or Most Recently Relevant to Health Maintenance Results * LIPID PROFILE (LIPID PANEL) (06/05/2024 11:25 AM CDT) Cholesterol 154 <200 mg/dL [facility] HDL Cholesterol 63 > OR = 40 mg/dL [facility] Triglycerides 76 <150 mg/dL [facility] LDL Calculated 75 mg/dL (calc) [facility] Comment: Reference range: <100 Desirable range <100 mg/dL for primary prevention; <70 mg/dL for patients with CHD or diabetic patients with > or = 2 CHD risk factors. LDL-C is now calculated using the Kia calculation, which is a validated novel method providing better accuracy than the Friedewald equation in the estimation of LDL-C. Mihir HEDRICK et al. BERT. 2013;310(19): 2563-9138 (http://education.[employer].Are You a Human/faq/LQN139) CHOL/HDLC RATIO 2.4 <5.0 (calc) [facility] Non HDL Cholesterol 91 <130 mg/dL (calc) [facility] Comment: For patients with diabetes plus 1 major ASCVD risk factor, treating to a non-HDL-C goal of <100 mg/dL (LDL-C of <70 mg/dL) is considered a therapeutic option. Test Performed at: [facility] [id number] JULIO MORILLO MD Blood BLOOD SPECIMEN / Unknown 06/05/2024 11:25 AM CDT 06/05/2024 11:26 AM CDT us Cheyenne Yanez MD LAB - CHEMISTRY ORDERABLES Final Result [address] [id number] from Last 3 Months or Most Recently Relevant to Health Maintenance Insurance [employer] Care Teams Course Developer Relationship Specialty Start Date End Date Cheyenne Yanez MD [address] [id number] PCP - General Family Medicine 06/03/24
== END 2025-05-03 19:24 | disposition home or self-care (01) ==
PROVIDERS: Emergency Provider Nurse Practitioner Family; PCP Family Medicine
DX: B02.9 Zoster without complications (principal); Z87.891 Personal history of nicotine dependence; G35 Multiple sclerosis; K90.0 Celiac disease
CPT/HCPCS: 99213; G0463